=== PATIENT | female | born 1995 | race Caucasian/White ===

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

== ENCOUNTER 2017-06-19 13:02 | Emergency (ER) | payer BC, OTHER ==
[~2017-06-19] VITALS: Ht 177.8 cm; Wt 176.9 kg
--- OUTSIDE RECORDS SUMMARY | ~2017-06-19 | XMS ---
Demographics + + + | Address | [address] | | | [place] [address] | + + + | Preferred Language | Unknown | + + + | Marital Status | Unknown | + + + | Episcopal Affiliation | Unknown | + + + | Race | Unknown | + + + | Ethnic Group | Unknown | + + + Author + + + | Author | [facility] | + + + | Organization | [facility] | + + + | Address | [address] | | | [place] [address] | + + + | Phone | | + + + Care Team Providers + + + + | Care Raw Stock Machine Loader Name | Role | Phone | + + + + Unavailable | Unavailable | + + + + PROBLEMS +---------+ + + +--------+ + + | Type | Condition | ICD9-CM | [id number] | Onset | Condition | SNOMED | | | | Code | Code | Dates | Status | Code | +---------+ + + +--------+ + + | Problem | Morbid | | E66.01 | | Active | [id number] | | | obesity | | | | | | +---------+ + + +--------+ + + | Problem | | Z30.9 | | | Active | [id number] | | | control | | | | | | +---------+ + + +--------+ + + | Problem | Weight | | R63.5 | | Active | 4351637 | | | gain | | | | | | +---------+ + + +--------+ + + | Problem | Asthma | | J45.909 | | Active | [id number] | +---------+ + + +--------+ + + | Problem | History of | Z90.49 | | | Active | 505100746 | | | | | | | | | | | appendecto | | | | | | | | my | | | | | | +---------+ + + +--------+ + + | Problem | Family | | Z83.3 | | Active | [id number] | | | history of | | | | | | | | diabetes | | | | | | | | mellitus | | | | | | +---------+ + + +--------+ + + | Problem | Depression | | F41.8 | | Active | [id number] | | | with | | | | | | | | anxiety | | | | | | +---------+ + + +--------+ + + | Problem | Bipolar | | F31.30 | | Active | 92812797 | | | depression | | | | | | +---------+ + + +--------+ + + | Problem | Anxiety | F41.8 | | | Active | [id number] | | | and | | | | | | | | depression | | | | | | +---------+ + + +--------+ + + | Problem | Family | Z80.3 | | | Active | [id number] | | | history of | | | | | | | | breast | | | | | | | | cancer | | | | | | +---------+ + + +--------+ + + | Problem | Weight | R63.4 | | | Active | [id number] | | | loss | | | | | | +---------+ + + +--------+ + + | Problem | Irritable | K58.9 | | | Active | 12410059 | | | bowel | | | | | | +---------+ + + +--------+ + + | Problem | Breast | N63 | | | Active | 27697445 | | | lump | | | | | | +---------+ + + +--------+ + + ALLERGIES + + + + +--------+ | Substance | Reaction | Event Type | Date | Status | + + + + +--------+ | Hydrocodone-Tin | vomiting | Drug Allergy | Nov, | Active | | taminophen | | | | | + + + + +--------+ SOCIAL HISTORY No smoking Hx information available PLAN OF CARE + +---------+ | Activity | Details | + +---------+ +---+ | | +---+ + + + | Follow Up | after results back for ultrasound of the | | | breast, 4 Weeks Reason:null | + + + | Pending Test | Ultrasound : Breast, left | + + + VITAL SIGNS + + + + | Height | 70 in | 2016-11-30 | + + + + | Weight | 410.4 lbs | 2016-11-30 | + + + + | BMI | 58.88 kg/m2 | 2016-11-30 | + + + + | Temperature | 97.8 degrees Fahrenheit | 2016-11-30 | + + + + | Heart Rate | 111 /min | 2016-11-30 | + + + + | Blood pressure systolic | 161 mm Hg | 2016-11-30 | + + + + | Blood pressure diastolic | 85 mm Hg | 2016-11-30 | + + + + MEDICATIONS + + + + + + + +--------+ | Medicati | Instruct | Dosage | Frequenc | Start | End Date | Duration | Status | | on | ions | | y | Date | | | | + + + + + + + +--------+ | Sertrali | Orally | 1 tablet | | Nov, | | 30 | Active | | ne HCl | qhs | | | 2017 | | day(s) | | | 50 mg | | | | | | | | + + + + + + + +--------+ | Ortho | Orally | 1 tablet | 24h | 29 Oct, | | 28 | Active | | Tri-Cycl | Once a | | | 2016 | | day(s) | | | en (28) | day | | | | | | | | 0.18/0.2 | | | | | | | | | 15/0.25 | | | | | | | | | MG-35 | | | | | | | | | MCG | | | | | | | | + + + + + + + +--------+ | Colestip | Orally | 1-3 | 24h | Nov, | | 30 | Active | | ol HCl 1 | Once a | tablets | | 2016 | | day(s) | | | GM | day | | | | | | | + + + + + + + +--------+ | Dicyclom | Orally | 1 tablet | | 16 Nov, | 14 Mar, | 30 | Active | | ine HCl | qhs. august | | | 2016 | 2018 | day(s) | | | 20 mg | repeat | | | | | | | | | up to 3 | | | | | | | | | times | | | | | | | | | daily | | | | | | | + + + + + + + +--------+ | Amitript | Orally | 1-2 | | 16 Nov, | | 30 | Active | | yline | qhs | tablets | | 2016 | | day(s) | | | HCl 10 | | | | | | | | | mg | | | | | | | | + + + + + + + +--------+ RESULTS No Results PROCEDURES + + + + + | Procedure | Date Ordered | Related Diagnosis | Body Site | + + + + + | Est Level III | Nov 30, 2016 | | | | Intermediate | | | | + + + + + IMMUNIZATIONS No Known Immunizations"
--- OUTSIDE RECORDS SUMMARY | ~2017-06-19 | XMS ---
Demographics + + + | Address | [address] | | | [place] [address] | + + + | Preferred Language | Unknown | + + + | Marital Status | Unknown | + + + | Jehovah'S Witness Affiliation | Unknown | + + + | Race | Unknown | + + + | Ethnic Group | Unknown | + + + Author + + + | Author | [facility] | + + + | Organization | [facility] | + + + | Address | [address] | | | [place] [address] | + + + | Phone | | + + + Care Team Providers + + + + | Care Chief Relay Tester Name | Role | Phone | + + + + Unavailable | Unavailable | + + + + PROBLEMS +---------+ + + +--------+ + + | Type | Condition | ICD9-CM | [id number] | Onset | Condition | SNOMED | | | | Code | Code | Dates | Status | Code | +---------+ + + +--------+ + + | Problem | History of | Z90.49 | | | Active | [id number] | | | | | | | | | | | appendecto | | | | | | | | my | | | | | | +---------+ + + +--------+ + + | Problem | Asthma | | J45.909 | | Active | 444207318 | +---------+ + + +--------+ + + | Problem | Weight | R63.4 | | | Active | 91174587 | | | loss | | | | | | +---------+ + + +--------+ + + | Problem | | Z30.9 | | | Active | 54322326 | | | control | | | | | | +---------+ + + +--------+ + + | Problem | Depression | | F41.8 | | Active | 451640374 | | | with | | | | | | | | anxiety | | | | | | +---------+ + + +--------+ + + | Problem | Family | | Z83.3 | | Active | 609896227 | | | history of | | | | | | | | diabetes | | | | | | | | mellitus | | | | | | +---------+ + + +--------+ + + | Problem | Weight | | R63.5 | | Active | 6167333 | | | gain | | | | | | +---------+ + + +--------+ + + | Problem | Morbid | | E66.01 | | Active | 211026096 | | | obesity | | | | | | +---------+ + + +--------+ + + ALLERGIES Unknown Allergies SOCIAL HISTORY No smoking Hx information available PLAN OF CARE VITAL SIGNS MEDICATIONS + + + + + + + +--------+ | Medicati | Instruct | Dosage | Frequenc | Start | End Date | Duration | Status | | on | ions | | y | Date | | | | + + + + + + + +--------+ | Ortho | Orally | 1 tablet | 24h | 29 Bi, | | 28 | Active | | Tri-Cycl | Once a | | | 2017 | | day(s) | | | en [...] + + +--------+ RESULTS No Results PROCEDURES No Known procedures IMMUNIZATIONS No Known Immunizations"
--- OUTSIDE RECORDS SUMMARY | ~2017-06-19 | XMS ---
Demographics + + + | Address | [address] | | | [place] [address] | + + + | Preferred Language | Unknown | + + + | Marital Status | Unknown | + + + | Buddhism Affiliation | Unknown | + + + | Race | Unknown | + + + | Ethnic Group | Unknown | + + + Author + + + | Author | [facility] | + + + | Organization | [facility] | + + + | Address | [address] | | | [place] [address] | + + + | Phone | | + + + Care Team Providers + + + + | Care Habilitation Assistant Name | Role | Phone | + + + + Unavailable | Unavailable | + + + + PROBLEMS +---------+ + + +--------+ + + | Type | Condition | ICD9-CM | [id number] | Onset | Condition | SNOMED | | | | Code | Code | Dates | Status | Code | +---------+ + + +--------+ + + | Problem | Morbid | | E66.01 | | Active | [id number] | | | obesity | | | | | | +---------+ + + +--------+ + + | Problem | | Z30.9 | | | Active | 08185619 | | | control | | | | | | +---------+ + + +--------+ + + | Problem | Weight | | R63.5 | | Active | 2813152 | | | gain | | | | | | +---------+ + + +--------+ + + | Problem | Asthma | | J45.909 | | Active | 579535330 | +---------+ + + +--------+ + + | Problem | History of | Z90.49 | | | Active | [id number] | | | | | | | | | | | appendecto | | | | | | | | my | | | | | | +---------+ + + +--------+ + + | Problem | Family | | Z83.3 | | Active | [id number] | | | history of | | | | | | | | diabetes | | | | | | | | mellitus | | | | | | +---------+ + + +--------+ + + | Problem | Depression | | F41.8 | | Active | [id number] | | | with | | | | | | | | anxiety | | | | | | +---------+ + + +--------+ + + | Problem | Bipolar | | F31.30 | | Active | 86565767 | | | depression | | | | | | +---------+ + + +--------+ + + | Problem | Anxiety | F41.8 | | | Active | 666353857 | | | and | | | | | | | | depression | | | | | | +---------+ + + +--------+ + + | Problem | Family | Z80.3 | | | Active | [id number] | | | history of | | | | | | | | breast | | | | | | | | cancer | | | | | | +---------+ + + +--------+ + + | Problem | Weight | R63.4 | | | Active | 51207649 | | | loss | | | | | | +---------+ + + +--------+ + + | Problem | Irritable | K58.9 | | | Active | 70557989 | | | bowel | | | | | | +---------+ + + +--------+ + + | Problem | Breast | N63 | | | Active | 91405005 | | | lump | | | | | | +---------+ + + +--------+ + + ALLERGIES Unknown Allergies SOCIAL HISTORY No smoking Hx information available PLAN OF CARE + +---------+ | Activity | Details | + +---------+ +---+ | | +---+ + + + | Pending Test | Ultrasound : Breast, left | + + + VITAL SIGNS MEDICATIONS Unknown Medications RESULTS No Results PROCEDURES No Known procedures IMMUNIZATIONS No Known Immunizations"
== END 2017-06-19 13:32 | disposition home or self-care (01) ==
LOC: ED 13:02
DX: M54.5 Low back pain (principal)

== ENCOUNTER 2017-07-24 17:08 | Emergency (ER) | payer OTHER ==
[~2017-07-24] VITALS: Ht 177.8 cm; Wt 176.9 kg
[2017-07-24] MEDS ORDERED: COLESTID1 GM PO (17:19)
[2017-07-24] MEDS ORDERED: SERTRALINE HCL50 MG PO (17:20)
[2017-07-24] MEDS ORDERED: AMITRIPTYLINE H10 MG PO (17:20)
[2017-07-24] MEDS ORDERED: DICYCLOMINE HCL20 MG PO (17:20)
[2017-07-24] MEDS ORDERED: XANAX XR2 MG PO (17:21)
[2017-07-24] MEDS ORDERED: FOLIC ACID0.8 MG PO (17:21)
[2017-07-24] MEDS ORDERED: KETOROLAC TROME10 MG PO (18:28)
== END 2017-07-24 18:38 | disposition home or self-care (01) ==
LOC: ED 17:08
DX: S63.91XA Sprain of unspecified part of right wrist and hand, initial encounter (principal); F17.200 Nicotine dependence, unspecified, uncomplicated; Z79.899 Other long term (current) drug therapy; W22.8XXA Striking against or struck by other objects, initial encounter
CPT/HCPCS: 73130; 99283

== ENCOUNTER → 2017-07-28 | Emergency (ER) | payer OTHER ==
[~2017-07-28] VITALS: Ht 177.8 cm; Wt 176.9 kg
[~2017-07-28] MED LIST changes: +AMITRIPTYLINE H10 MG PO; +COLESTID1 GM PO; +DICYCLOMINE HCL20 MG PO; +FOLIC ACID0.8 MG PO; +KETOROLAC TROME10 MG PO; +SERTRALINE HCL50 MG PO; +XANAX XR2 MG PO
== END ==
LOC: ED 20:45
DX: J06.9 Acute upper respiratory infection, unspecified (principal); J45.909 Unspecified asthma, uncomplicated; F31.9 Bipolar disorder, unspecified; F17.200 Nicotine dependence, unspecified, uncomplicated; Z79.899 Other long term (current) drug therapy
CPT/HCPCS: 87081; 87880; 99283